=== PATIENT | male | born 1970 | race Caucasian/White ===

== ENCOUNTER 2017-01-11 19:55 | Observation (INO) ==
[2017-01-11] MEDS ORDERED: MORPHINE 2 MG/1 ML SYRINGE IV STA (20:27)
[2017-01-11] MEDS ORDERED: ONDANSETRON 4 MG/2 ML VIAL IV STA (20:27)
[2017-01-11] MEDS ORDERED: ONDANSETRON 4 MG/2 ML VIAL ONE (20:35)
[2017-01-11] MEDS ORDERED: MORPHINE 2 MG/1 ML SYRINGE ONE ×2 (20:36)
--- NOTE | 2017-01-11 20:40 | Emergency Department Note ---
IRaeann Mantricia, am scribing for, and in the presence of, Yoana Vega DO 20:35. IGary Debra, DO, personally performed the services described in this documentation, ascribed by Fifi Cary in my presence, and it is both accurate and complete . Arrival - Arrival Chief Complaint: Chest Pain ED Nursing Triage Note: pt brought in via ems with c/o s/p code per family. family reports pt had c/o chest pain then was found unresponive. family reports doing "cpr", chest compressions without rescue breathing, for an unknown length of time. ems states that pt had pulse 130's and bp of 165/100, o2 sat 97 % on RA at arrival. pt awake, alert at time of triage. pt has hx of dm. ems reports glucose of 300 Mode of Arrival: Stretcher Limitations: No Limitations Source: Patient, Family - History of Present Illness HPI Narrative: Pt is a 46 y/o white male arriving to ED via EMS with c/o unresponsiveness that onset today. Family reports that pt was experiencing chest pain around 1730 today. After eating dinner, pt began to breathe heavily and then became unresponsive. Niece reports that she began to perform chest compressions. Pt states that "feels like " and only remembers waking up here in ED. He now c /o a severe headache and elevated heart rate. Pt has a PMHx of DM and ME in January 2006. He denies consuming any recreational drugs but reports that he used cocaine in the past. EMS states that pt had a pulse of 130, glucose of 300 , and blood pressure of 165/100. Pt is a awake and alert at time of exam. At time of exam, pt's heart rate is 122 with a blood pressure of 126/59. No other complaints were reported to ED. Onset (ago): hour(s) Consistency: constant Severity: moderate Allergies/Adverse Reactions: Allergies Allergy/AdvReac Type Severity Reaction Status Date / Time Sulfa (Sulfonamide Allergy RASH Verified 09/10/14 17:57 Antibiotics) naproxen [From Naprosyn] AdvReac Swelling Verified 09/10/14 17:57 of Lip/Tongue/Throat Home Medications: Home Medications Medication Instructions Recorded Confirmed Type Insulin Aspart [NovoLOG] 30 unit SUBCUT BEDTIME 01/11/17 01/11/17 History Review of System - Review of System Constitutional: Present: other (unresponsiveness). Absent: chills, diaphoresis , fever Gastrointestinal: Absent: abdominal pain, nausea, vomiting, diarrhea Musculoskeletal: Absent: arm pain, back pain, leg pain, neck pain Neurological: Present: headache. Absent: weakness Medical,Surgical,& Family Hx - Medical History Endocrine: History of: Diabetes Mellitus (IDDM) - Social History Smoking Status: Current every day smoker Frequency of Alcohol Use: Occasionally Type of Drug Use: None Exam Vital Signs: Vital Signs Temperature 99.5 F 01/11/17 19:55 Pulse Rate 120 H 01/11/17 19:55 Respiratory Rate 20 01/11/17 19:55 Blood Pressure 123/89 01/11/17 19:55 O2 Sat by Pulse Oximetry 97 01/11/17 19:55 - General General appearance: alert, in no apparent distress, lethargic ("acting") - Head Head exam: Present: atraumatic, normocephalic - Eye Eye exam: Present: normal appearance, PERRL, EOMI - ENT ENT exam: Present: normal exam - Neck Neck exam: Present: normal inspection - Chest Chest inspection: Present: normal inspection - Respiratory Respiratory exam: Present: normal lung sounds bilaterally - Cardiovascular Cardiovascular exam: Present: normal rhythm, tachycardia, normal heart sounds - Abdominal Exam Abdominal exam: Present: soft. Absent: distention, tenderness, guarding, rebound - Extremities Exam Extremities exam: Present: full ROM, normal capillary refill, other (bilat LE mildly edemenous ). Absent: tenderness - Back Exam Back exam: Present: normal inspection - Neurological Exam Neurological exam: Present: alert, oriented X3, CN II-XII intact - Psychiatric Psychiatric exam: Present: normal affect, normal mood - Skin Skin exam: Present: warm, dry, intact, normal color Course Course Narrative: spoke with hospitalist service who will admit pt Results - Labs CBC & BMP: 01/11/17 20:51 01/11/17 20:37 Lab Results: I have reviewed the patients labs - Diagnostic Findings Procedure: CT: report reviewed by me (Head: No acute intracranial abnormality.) Disposition Clinical Impression: URI (upper respiratory infection), Atypical chest pain Case discussed with: patient, patient's family Disposition: Still a Patient Condition: Stable Prescriptions: Acetamin/Codeine 120-12 mg/5Ml [Tylenol/Codeine Liquid] 12.5 ml PO Q6H PRN #120 ml PRN Reason: Pain Ciprofloxacin Tab [Cipro Tab] 500 mg PO BID #14 tablet New Prescriptions: Rx's Medication Instructions Recorded Acetamin/Codeine 120-12 mg/5Ml 12.5 ml PO Q6H PRN #120 ml 01/11/17 [Tylenol/Codeine Liquid] Ciprofloxacin Tab [Cipro Tab] 500 mg PO BID #14 tablet 01/11/17 Time of Disposition: 23:03
[2017-01-11 20:54] LABS: Basophils # 0.1 10*3/uL (0.0-0.2); Basophils % 0.5 % (0.0-0.8); Eosinophils # 0.1 10*3/uL (0.0-0.87); Eosinophils % 0.7 % (0.00-10.9); Hematocrit 45.9 VOL% (42.0-52.0); Immature Granulocytes % 0.4 %; Immature Granulocytes Absolute 0.04 #; Lymphocytes # 1.5 10*3/uL (1.4-4.0); Lymphocytes % 15.2 % (21.2-54.2); Mean Corpuscular HGB Conc 34.9 GM/DL (32-36); Mean Corpuscular Hemoglobin 31 PG (27-34); Mean Platelet Volume 9.3 FL (9.6-12.0); Monocytes # 0.5 10*3/uL (0.11-0.8); Monocytes % 4.7 % (1.7-12.7); Neutrophils # 7.7 10*3/uL (1.4-7.4); Neutrophils % 78.5 % (38.7-73.9); Platelet Count 232 T/CUMM (130-400); Red Cell Distribution Width 12.1 % (9.3-17.3); White Blood Count 9.8 T/CUMM (4-12)
[2017-01-11 21:14] LABS: PT Patient Result 10.7 SECS; Partial Thromboplastin Time 28.3 SECS (0-40)
--- NOTE | 2017-01-11 21:14 | CT Report ---
CT head/brain wo con INDICATION: Altered mental status/confusion Headache The total DLP is 1012 mGy*cm. COMPARISON: None available Technique: Serial axial tomographic images of the brain were obtained without the use of intravenous contrast. Dose reduction: This CT exam was performed using one or more of the following dose reduction techniques: Automated exposure control, automated adjustment of the mA and/or KV according to patient size, or use of iterative reconstruction technique. Findings: The cortical sulcal pattern is generally symmetric and within normal limits in appearance bilaterally. There is no evidence of vascular territory infarct or acute intracranial hemorrhage. The vale-white matter differentiation is generally maintained. There is no hydrocephalus. The basilar cisterns are patent. The visualized paranasal sinuses, mastoid air cells and middle ear cavities are predominantly clear. The included orbits and their contents appear within normal limits. The visualized osseous structures and overlying soft tissues of the skull and face demonstrate no acute abnormality. IMPRESSION: No acute intracranial abnormality. PROCEDURE INTERPRETED AT [facility] DEPARTMENT OF RADIOLOGY Final Report Signed by: Nathan Kat
[2017-01-11 21:18] LABS: Alanine Aminotransferase 40 U/L (16-61); Albumin 2.9 G/DL (3.4-5.0); Alkaline Phosphatase 105 U/L (45-117); Aspartate Amino Transferase 33 U/L (0-37); Blood Urea Nitrogen 15 MG/DL (7-18); Calcium 8.5 MG/DL (8.5-10.1); Glucose 303 MG/DL (74-106); Potassium 4.3 MMOL/L (3.5-5.1); Sodium 136 MMOL/L (136-145); Total Protein 6.9 G/DL (6.4-8.3); Troponin I Only < 0.015 NG/ML (0.00-0.045)
[2017-01-11 21:27] LABS: Apearance,Urine CLEAR (Clear); Bilirubin,Urine Negative (Negative); Blood, Urine Negative (Negative); Glucose,Urine (UA) >=500 mg/dL (Negative); Ketones,Urine 5 mg/dL (Negative); Mucus,Urine Occasional /LPF (Occasional); Nitrite,Urine Negative (Negative); Protein,Urine 30 MG/DL; RBC,Urine <1 /HPF (0-4); Urine Color Yellow (Yellow); Urine Urobilinogen < 2.0 EU/DL (0.2-1.0); WBC,Urine <1 /HPF (0-6)
[2017-01-11 21:31] LABS: Barbiturates Screen,Urine Negative (Negative); Benzodiazepines Screen,Urine Negative (Negative); Cannabinoid Screen,Urine Negative (Negative); Opiate Screen,Urine Negative (Negative); Phencyclidine Screen,Urine Negative (Negative)
[2017-01-11] MEDS ORDERED: INSULIN REGULAR 100 UNIT/ML IV STA (21:52)
[2017-01-11] MEDS ORDERED: INSULIN REGULAR 100 UNIT/ML ONE (22:07)
[2017-01-11] MEDS ORDERED: SODIUM CHLORIDE 0.9% 1,000 ML IV STA (22:20)
[2017-01-11] MEDS ORDERED: LEVOFLOXACIN INJ 750 MG in PREMIX 1 EACH IV STA (23:06)
--- NOTE | 2017-01-11 23:35 | EKG Report ---
Stationary ECG Study [facility] ER Test Date: 01/11/2017 8:16:52 PM Pat Name: BHARTI JAMES Department: Room: Gender: M Housing Coordinator: : 1970 Requested by: Yoana Vega Order Number: [id number] Reading MD: MELITA KASPER Intervals [place] Rate: 121 P: 71 SD: 142 QRS: 77 QRSD: 92 T: 69 QT: 287 QTc: 359 Interpretive Statements SINUS TACHYCARDIA ABNORMAL RHYTHM ECG Electronically Signed On 01-12-17 18:49:51 CDT by MELITA KASPER [email or web address]
[2017-01-11] MEDS ORDERED: LEVOFLOXACIN INJ 150 ML IV ONE (23:43)
[2017-01-12] MEDS ORDERED: ASPIRIN 325 MG TABLET PO STA (00:28)
[2017-01-12] MEDS ORDERED: NITROGLYCERIN SL 0.4 MG TABLET SL PRN (00:28)
[2017-01-12] MEDS ORDERED: DEXTROSE 50% 25 GM/50 ML SYRINGE IV PRN (00:41)
[2017-01-12] MEDS ORDERED: GLUCAGON 1 MG VIAL IM PRN (00:41)
--- NOTE | 2017-01-12 00:47 | Hospitalist History & Physical ---
Assessment and Plan (1) Chest pain Status: Acute Assessment and plan: Associated with syncope in a patient with a history of prior WA that he said was treated at [facility]. He had what family describes complete syncope for which they applied CPR following the chest pain. Certainly cardiac arrest is a possibility based on his this history. We will continue workup for acute coronary syndrome rule out. Start aspirin, beta murphy, Lovenox, Plavix. Consult cardiology. He was given a dose of Levaquin in the ER but I do not see a strong reason to continue antibiotics at this point. Current Visit: Yes (2) Syncope Status: Acute Current Visit: Yes (3) History of WA (myocardial infarction) Status: Acute Assessment and plan: We will request records of prior WA from [facility]. Current Visit: Yes (4) Uncontrolled diabetes mellitus type 2 without complications Status: Acute Assessment and plan: Patient says he takes 30 units of Humalog daily. I explained to him that this is actually an unconventional method of treatment. Proper treatment would include basal insulin and use of quick-acting Humalog type only for carbohydrate meal coverage and sliding scale insulin spike coverage. His sugars 300. Will start medium sliding scale and basal insulin with NPH 15 units twice a day until we see what his basal insulin requirements are. Check A1c. 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 Herrmann is a 46 year old male States he had an WA in 2005. He says he has not followed up with cardiology or even very often with primary care since then. He states that on the evening of admission at about 5 PM he had an episode of chest pain which lasted about 5 minutes. Then he passed out apparently witnessed by family members then performed CPR on him. After this he came around quickly. He complained of now soreness in his chest he feels from the CPR and a headache. He denied diaphoresis nausea or dyspnea. He denies exertional chest pains. He has diabetes and his only medication is Humalog 30 units daily in the evening. He apparently does not take any basal insulin. Vital signs in ER showed BP 123/89 , pulse 120, temperature 99.5. 2127. Lab work showed normal CBC and chemistry except for glucose of 303. Chest x-ray appears negative reading is pending. EKG showed sinus tachycardia. Troponin I was negative at less than 0.015. And again at this point he feels okay except for headache. Home Medications Medication Instructions Recorded Confirmed Type Insulin Aspart [NovoLOG] 30 unit SUBCUT BEDTIME 01/11/17 01/11/17 History Allergies Allergy/AdvReac Type Severity Reaction Status Date / Time Sulfa (Sulfonamide Allergy RASH Verified 09/10/14 17:57 Antibiotics) naproxen [From Naprosyn] AdvReac Swelling Verified 09/10/14 17:57 of Lip/Tongue/Throat Medical,Surgical,& Family Hx - Medical History Cardio: History of: WA (2005) Endocrine: History of: Diabetes Mellitus (IDDM) (States he had eye surgery.) - Family History Family History: noncontributory (Family history reviewed and otherwise nonsignificant. Denies other family members with heart disease.) - Social History Smoking Status: Current every day smoker Frequency of Alcohol Use: Occasionally (Admits to drinking 2-4 beers 2-3 times per week. "Just to relax.") Type of Drug Use: None 12 point system: reviewed and no additional remarkable complaints except as stated Exam - Constitutional Vitals: Period Temp Pulse Resp BP Sys/Hu Pulse Ox Last 24 Hr 99.5 F-99.5 F 120-120 20-20 123-123/89-89 97 General appearance: normal weight, over weight - Head Head exam: Present: normal inspection - Eye Eye exam: Present: EOMI Pupils: Present: SAUD, normal accommodation - ENT ENT exam: Present: normal exam, normal external ear exam, normal oropharynx - Neck Neck exam: Present: normal inspection. Absent: lymphadenopathy, tenderness, thyromegaly - Respiratory Respiratory exam: Present: clear to auscultation bilaterally. Absent: rales, rhonchi, wheezes - Cardiovascular Cardiovascular exam: Present: regular rate and rhythm. Absent: JVD, systolic murmur - GI/Abdominal GI/Abdominal exam: Present: normal bowel sounds, soft. Absent: tenderness, rebound - Extremities Exam Extremities exam: Present: normal inspection. Absent: edema - Back Exam Back exam: Present: normal inspection - Neurological Exam Neurological exam: Present: alert, oriented X3, normal gait - Psychiatric Psychiatric exam: Present: normal affect, normal mood - Skin Skin exam: Present: normal color, warm. Absent: diaphoretic, rash Results - Labs CBC & BMP: 01/11/17 20:51 01/11/17 20:37 - EKG EKG results: WNL, sinus rhythm - Diagnostic Findings Procedure: Chest x-ray: image reviewed by me (appears normal)
[2017-01-12] MEDS ORDERED: ASPIRIN 325 MG TABLET ONE (00:56)
[2017-01-12] MEDS ORDERED: CLOPIDOGREL 300 MG TABLET PO STA (01:02)
[2017-01-12 01:47] LABS: Albumin 2.9 G/DL (3.4-5.0); Bilirubin,Total 0.5 MG/DL (0.2-1.0); Calcium 7.9 MG/DL (8.5-10.1); Osmolality,Calculated 276.2 MOS/KG (273-304); Potassium 4.2 MMOL/L (3.5-5.1); Total Protein 6.9 G/DL (6.4-8.3)
[2017-01-12] MEDS: ENOXAPARIN 100 MG/ML SYRINGE SUBCUT SCH ×2 (02:49→15:30)
[2017-01-12 04:46] LABS: Basophils % 0.6 % (0.0-0.8); Eosinophils % 0.3 % (0.00-10.9); Hematocrit 41.4 VOL% (42.0-52.0); Hemoglobin 14.6 GM/DL (14.0-18.0); Immature Granulocytes % 0.4 %; Immature Granulocytes Absolute 0.03 #; Lymphocytes # 1.4 10*3/uL (1.4-4.0); Lymphocytes % 21.4 % (21.2-54.2); Mean Corpuscular HGB Conc 35.3 GM/DL (32-36); Mean Corpuscular Hemoglobin 32 PG (27-34); Mean Corpuscular Volume 89.8 FL (87-102); Mean Platelet Volume 9.5 FL (9.6-12.0); Monocytes # 0.4 10*3/uL (0.11-0.8); Monocytes % 5.9 % (1.7-12.7); Neutrophils # 4.8 10*3/uL (1.4-7.4); Neutrophils % 71.4 % (38.7-73.9); Platelet Count 202 T/CUMM (130-400); Red Blood Count 4.61 MC/CUMM (3.8-5.5); Red Cell Distribution Width 12.1 % (9.3-17.3); White Blood Count 6.7 T/CUMM (4-12)
[2017-01-12 05:13] LABS: Albumin 2.7 G/DL (3.4-5.0); Bilirubin,Total 0.9 MG/DL (0.2-1.0); Calcium 7.7 MG/DL (8.5-10.1); Osmolality,Calculated 284.2 MOS/KG (273-304); Potassium 4.3 MMOL/L (3.5-5.1); Total Protein 5.8 G/DL (6.4-8.3)
--- NOTE | 2017-01-12 07:39 | EKG Report ---
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
--- NOTE | 2017-01-12 07:43 | XRay Report ---
Exam: XR chest 1V portable Date: 01/11/2017 10:40 PM Indication: Cough chest pain Comparison: None Technical: AP Findings: External cardiac leads are present. The heart is normal in size. No obvious consolidations. Mild interstitial thickening. No obvious effusions. No pneumothorax. Impression: 1. Mild interstitial thickening without consolidations. This could be secondary to mid inspiratory effort however mild interstitial edema cannot be excluded PROCEDURE INTERPRETED AT [facility] DEPARTMENT OF RADIOLOGY Final Report Signed by: Dr. Gunnar Allen
[2017-01-12] MEDS ORDERED: INSULIN NPH 100 UNIT/ML SUBCUT SCH (08:00)
[2017-01-12] MEDS: INSULIN LISPRO 100 UNIT/ML SUBCUT SCH ×4 (09:03→21:08)
[2017-01-12] MEDS: ASPIRIN CHEW 81 MG TABLET PO SCH (09:03)
[2017-01-12] MEDS: METOPROLOL TARTRATE 25 MG TABLET PO SCH ×2 (09:03→21:07)
--- NOTE | 2017-01-12 11:21 | Hospitalist Progress Note ---
Assessment and Plan (1) Fever Status: Acute Assessment and plan: On admission he had a temperature of 102.4. Chest x-ray and urinalysis were unremarkable. He was begun on intravenous levofloxacin.Blood cultures were obtained and are pending. Current Visit: Yes Qualifiers: Fever type: unspecified Qualified Code(s): R50.9 - Fever, unspecified (2) Syncope Status: Acute Assessment and plan: Telemetry monitoring is demonstrated sinus tachycardia. CT scan of the head demonstrated no acute abnormalities. He has been seen in consultation by cardiology. Current Visit: Yes (3) Uncontrolled diabetes mellitus type 2 without complications Status: Chronic Assessment and plan: His blood glucose this morning was 418. I have increased his NPH insulin to 20 units subcutaneous twice daily. Current Visit: Yes Qualifiers: Diabetes mellitus half-way insulin use: with intensivist use Qualified Code( s): E11.65 - Type 2 diabetes mellitus with hyperglycemia; Z79.4 - jowl trimmer ( current) use of insulin (4) CAD (coronary artery disease) Status: Chronic Assessment and plan: He has a previous history of a myocardial infarction and of a possible coronary intervention. Current Visit: Yes Qualifiers: Coronary Disease-Associated Artery/Lesion type: [place] artery [place] vs. transplanted heart: [place] heart Associated angina: without angina Qualified Code(s): I25.10 - Atherosclerotic heart disease of [place] coronary artery without angina pectoris Hospitalist: Subjective Interval history: Patient was hospitalized here last night with an episode of syncope and with uncontrolled diabetes mellitus. He is comfortable today with no chest pain, shortness of breath, dizziness, or recurrent episodes of loss of consciousness. He was begun on insulin NPH 15 units subcutaneous twice daily on admission.His blood glucose this morning was 418. I will increase his NPH insulin to 20 units subcutaneous twice daily. He has been seen in consultation by cardiology. I await the recommendations. Exam - Constitutional Vitals: Period Temp Pulse Resp BP Sys/Hu Pulse Ox Last 24 Hr 99.5 F-102.4 F 101-125 20-28 104-127/56-89 96-97 General appearance: no acute distress - Head Head exam: Present: normal inspection - Neck Neck exam: Present: normal inspection - Respiratory Respiratory exam: Present: clear to auscultation bilaterally - Cardiovascular Cardiovascular exam: Present: regular rate and rhythm - GI/Abdominal GI/Abdominal exam: Present: normal bowel sounds, soft, other (Nontender with no palpable masses or hepatosplenomegaly.) - Extremities Exam Extremities exam: Present: normal inspection - Neurological Exam Neurological exam: Present: alert, oriented X3 - Skin Skin exam: Present: normal color, warm, intact Results - Labs CBC & BMP: 01/12/17 04:32 01/12/17 04:31
[2017-01-12] MEDS: ACETAMINOPHEN 325 MG TABLET PO PRN (15:46)
[2017-01-12] MEDS: INSULIN NPH 100 UNIT/ML SUBCUT SCH (16:37)
--- NOTE | 2017-01-12 20:05 | Cardiology Consult Note ---
I, Joie Escamilla RN, am scribing for, and in the presence of, Emre Johns MD 20:04. Assessment and Plan - Time spent with patient Time spent with patient: Greater than 30 minutes (Due to assessment, planning, documentation, medication review) (1) Syncope Status: Acute Assessment and plan: Initial assessment and plan January 12, 2017: His story sounds unusual. I am not so sure that he had a true syncopal episode and CPR for 45 minutes-?. These enzymes negative, I doubt he is having ACS He has unknown treated/uncontrolled diabetes He is overweight I suspect he has untreated obstructive sleep apnea, likely contributing to his EDS Heart pounding could be tachycardia for many causes. So far it is only been sinus tachycardia The metoprolol is not controlling the tachycardia DC metoprolol and use bisoprolol I discussed with the patient the benefits of stopping tobacco/nicotine, the problems with continuing to use it, and options of treatment. The patient is considering this option. Consult Dr. Benitez regarding evaluations treatment of sleep apnea Aspirin daily Check fasting profile and treat per guidelines Prognosis is very guarded with so many untreated medical illnesses Thank you for allowing me to participate in this patient's care Current Visit: Yes (2) Tachycardia Status: Acute Current Visit: Yes (3) Palpitations Status: Acute Current Visit: Yes (4) History of ND (myocardial infarction) Status: Chronic Current Visit: No (5) Uncontrolled diabetes mellitus type 2 without complications Status: Chronic Current Visit: Yes Qualifiers: Diabetes mellitus [facility] insulin use: with manager long term care use Qualified Code( s): E11.65 - Type 2 diabetes mellitus with hyperglycemia; Z79.4 - manager long term care ( current) use of insulin (6) CAD (coronary artery disease) Status: Chronic Current Visit: Yes Qualifiers: Coronary Disease-Associated Artery/Lesion type: [place] artery [place] vs. 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 Johns PCP: None, states he just moved to this area recently Mr. Herrmann is a 46 year old male who reports he last saw a director technical about 4 years ago. He saw a director technical in [place], he does not remember the name. He reports he had an ND about 20 years ago. He had a heart cath at that time and they "cleaned out the blockage". He states he had a stress test done about 8 years ago and was told it was okay. He also has diabetes. 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 Surgeries include 2 eye surgeries, surgery for diabetic cyst, and tonsillectomy. Family history is positive for mother and sister with diabetes. He is a current smoker, stating he smokes 1 pack a day and has smoked since he was 10 years old. He states he was in his normal state of health until yesterday afternoon he was driving home and his heart began to beat very fast and he became short of breath. This continued and while he was eating he passed out and does not remember anything until he woke up at the hospital. No family is available at this time, but he says they told him that "his breathing was not right and his chest was beating hard", he also says they performed CPR. He says when he woke up at the hospital he continued to be short of breath and his heart was still beating fast, but the symptoms had improved. For the last several days he has had lower extremity edema. He says he has this from time to time. He denies having any chest pain at any time. EKG on admission showed sinus tachycardia with heart rate of 121. His blood pressures have been stable throughout the night. D-dimer was negative. Troponin has been negative 3. CT of the head showed no acute intracranial abnormality. Mr. Herrmann is seen resting in bed in no acute distress. She denies any chest pain, shortness of breath, dizziness, palpitations, or any further feelings of syncope or near syncope. His only complaint this morning is of a headache. He does have a temp this morning at 102.4, his white count has been normal. He has been started on metoprolol tartrate 25 mg p.o. twice daily. director college currently shows sinus tachycardia with heart rates in the 110s. CC: Chuck Spangler - Home Medications and Allergies Home Medications: Home Medications Medication Instructions Recorded Confirmed Type Insulin Aspart [NovoLOG] 30 unit SUBCUT BEDTIME 01/11/17 01/11/17 History Allergies/Adverse Reactions: Allergies Allergy/AdvReac Type Severity Reaction Status Date / Time Sulfa (Sulfonamide Allergy RASH Verified 09/10/14 17:57 Antibiotics) naproxen [From Naprosyn] AdvReac Swelling Verified 09/10/14 17:57 of Lip/Tongue/Throat - Constitutional Constitutional: Present: as per HPI - EENT Eyes: Present: loss of vision, requires corrective lense Ears: Absent: ear pain, tinnitus Nose, mouth and throat: Present: headache(s). Absent: dysphagia, epistaxis, neck pain - Cardiovascular Cardiovascular: Present: dyspnea, dyspnea on exertion, edema, palpitations. Absent: chest pain at rest, chest pain with activity, diaphoresis, radiating jaw , neck or arm pain, lightheadedness, orthopnea - Respiratory Respiratory: Present: cough, dyspnea, dyspnea on exertion. Absent: hemoptysis, wheezing - Gastrointestinal Gastrointestinal: Absent: abdominal pain, constipation, diarrhea, hematemesis, hematochezia, melena, nausea, vomiting - Genitourinary Genitourinary: Absent: dysuria, hematuria - Musculoskeletal Musculoskeletal: Absent: limited range of motion, muscle weakness - Neurological Neurological: Present: headache(s), syncope. Absent: confusion, dizziness, frequent falls - Psychiatric Psychiatric: Absent: anxiety, depression - Hematologic/Lymphatic Hematologic/Lymphatic: Absent: easy bleeding, easy bruising Medical,Surgical,& Family Hx - Medical History Cardio: History of: ND (2005) HEENT: History of: Eye Problem Endocrine: History of: Diabetes Mellitus (IDDM) (States he had eye surgery.) Other: History of: Miscellaneous Medical Problems (Head trauma as a child) - Surgical History Cardiac Surgeries: Sugical HX of: Cardiac Catheterization (2005) HEENT Surgeries: Surgical HX of: Eye Surgery, Tonsilectomy & Adenoidectomy - Family History Family History: Reports;: Family Diabetes (Mother, sister) - Social History Smoking Status: Current every day smoker (Smokes a pack a day, has smoked since age of 10) Have you smoked in the last 12 months: Yes Time spent discussing smoking cessation with patient: 3 to 10 minutes Frequency of Alcohol Use: Occasionally Type of Drug Use: None Lives With:: Sibling Functional capacity: independent ambulation Physical Examination Vital Signs Temp Pulse Resp BP Pulse Ox 99.5 F 120 H 20 123/89 97 01/11/17 19:55 01/11/17 19:55 01/11/17 19:55 01/11/17 19:55 01/11/17 19:55 General: Present: Appears Well, No Apparent Distress HEENT: Present: PERRL, Mucus Membranes Moist, Other (Right sided facial paralysis) Neck: Present: Supple Neck, Midline Trachea, No Bruit Cardiac: Present: Regular Rhythm, No Murmur, Tachycardia Lungs: Present: Normal Breath Sounds, No Wheeze, Rales, Rhonchi Neuro: Absent: Resting Tremor, Essential Tremor Abdomen: Present: Soft, Active Bowel Sounds, Non-Tender. Absent: Distended Skin: Absent: Rash, Suspicious Lesions Extremities: Present: Normal Upper Extr. Pulses, Normal Lower Extr. Pulses, +1 Edema Result/EKG - Labs CBC & BMP: 01/12/17 04:32 01/12/17 04:31 Lab Results: I have reviewed the past 24 hour labs Labs: Laboratory Results - last 24 hr 01/11/17 01/11/17 01/11/17 20:37 20:51 20:51 WBC 9.8 RBC 5.10 Hgb 16.0 Hct 45.9 MCV 90.0 MCH 31 MCHC 34.9 RDW 12.1 Plt Count 232 MPV 9.3 L Neut % (Auto) 78.5 H Lymph % (Auto) 15.2 L Elliott % (Auto) 4.7 Eos % (Auto) 0.7 Baso % (Auto) 0.5 Neut # (Auto) 7.7 H Lymph # (Auto) 1.5 Elliott # (Auto) 0.5 Eos # (Auto) 0.1 Baso # (Auto) 0.1 Immature Gran % 0.4 Nucleated RBC % 0.0 Immature Gran # 0.04 Nucleated RBCs # 0.00 Immature Plt Fraction 0.0 INR 1.0 PT Patient/Control Mix 10.7 D-Dimer, Quantitative <= 0.5 Circ Anticoag PTT 28.3 Sodium 136 Potassium 4.3 Chloride 103 Carbon Dioxide 26 Anion Gap 11.3 BUN 15 Creatinine 0.90 GFR Calculation 133 BUN/Creatinine Ratio 16.00 Glucose 303 H POC Glucose Hemoglobin A1c Calculated Osmolality 283.0 Lactic Acid Calcium 8.5 Total Bilirubin 0.50 AST 33 ALT 40 Alkaline Phosphatase 105 Total Creatine Kinase 74 CK-MB (CK-2) < 1.0 Troponin I < 0.015 B-Natriuretic Peptide Total Protein 6.9 Albumin 2.9 L Globulin 4.0 H Albumin/Globulin Ratio 0.7 L b-Hydroxybutyric mmol/L Urine Color Urine Appearance Urine pH Ur Specific [place] Urine Protein Urine Glucose (UA) Urine Ketones Urine Blood Urine Nitrate Urine Bilirubin Urine Urobilinogen Urine Leukocytes Urine RBC Urine WBC Urine Mucus Ur Culture Indicated? Urine Opiates Screen Ur Barbiturates Screen Ur Phencyclidine Scrn U Amphetamine/Methamph U Benzodiazepines Scrn U Cocaine Metab Screen U Cannabinoids Screen 01/11/17 01/11/17 01/11/17 20:51 21:18 21:18 WBC RBC Hgb Hct MCV MCH MCHC RDW Plt Count MPV Neut % (Auto) Lymph % (Auto) Elliott % (Auto) Eos % (Auto) Baso % (Auto) Neut # (Auto) Lymph # (Auto) Elliott # (Auto) Eos # (Auto) Baso # (Auto) Immature Gran % Nucleated RBC % Immature Gran # Nucleated RBCs # Immature Plt Fraction INR PT Patient/Control Mix D-Dimer, Quantitative Circ Anticoag PTT Sodium Potassium Chloride Carbon Dioxide Anion Gap BUN Creatinine GFR Calculation BUN/Creatinine Ratio Glucose POC Glucose Hemoglobin A1c Calculated Osmolality Lactic Acid Calcium Total Bilirubin AST ALT Alkaline Phosphatase Total Creatine Kinase CK-MB (CK-2) Troponin I B-Natriuretic Peptide 14 Total Protein Albumin Globulin Albumin/Globulin Ratio b-Hydroxybutyric mmol/L Urine Color Yellow Urine Appearance Clear Urine pH 6.0 Ur Specific [place] 1.010 Urine Protein 30 Urine Glucose (UA) >=500 Urine Ketones 5 Urine Blood Negative Urine Nitrate Negative Urine Bilirubin Negative Urine Urobilinogen < 2.0 H Urine Leukocytes Negative Urine RBC <1 Urine WBC <1 Urine Mucus Occasional Ur Culture Indicated? Not indicated Urine Opiates Screen Negative Ur Barbiturates Screen Negative Ur Phencyclidine Scrn Negative U Amphetamine/Methamph Negative U Benzodiazepines Scrn Negative U Cocaine Metab Screen Negative U Cannabinoids Screen Negative 01/11/17 01/11/17 01/12/17 22:15 23:38 00:57 WBC RBC Hgb Hct MCV MCH MCHC RDW Plt Count MPV Neut % (Auto) Lymph % (Auto) Elliott % (Auto) Eos % (Auto) Baso % (Auto) Neut # (Auto) Lymph # (Auto) Elliott # (Auto) Eos # (Auto) Baso # (Auto) Immature Gran % Nucleated RBC % Immature Gran # Nucleated RBCs # Immature Plt Fraction INR PT Patient/Control Mix D-Dimer, Quantitative Circ Anticoag PTT Sodium Potassium Chloride Carbon Dioxide Anion Gap BUN Creatinine GFR Calculation BUN/Creatinine Ratio Glucose POC Glucose Hemoglobin A1c Calculated Osmolality Lactic Acid 1.1 Calcium Total Bilirubin AST ALT Alkaline Phosphatase Total Creatine Kinase CK-MB (CK-2) Troponin I < 0.015 B-Natriuretic Peptide Total Protein Albumin Globulin Albumin/Globulin Ratio b-Hydroxybutyric mmol/L 0.1 Urine Color Urine Appearance Urine pH Ur Specific [place] Urine Protein Urine Glucose (UA) Urine Ketones Urine Blood Urine Nitrate Urine Bilirubin Urine Urobilinogen Urine Leukocytes Urine RBC Urine WBC Urine Mucus Ur Culture Indicated? Urine Opiates Screen Ur Barbiturates Screen Ur Phencyclidine Scrn U Amphetamine/Methamph U Benzodiazepines Scrn U Cocaine Metab Screen U Cannabinoids Screen 01/12/17 01/12/17 01/12/17 00:57 04:31 04:31 WBC RBC Hgb Hct MCV MCH MCHC RDW Plt Count MPV Neut % (Auto) Lymph % (Auto) Elliott % (Auto) Eos % (Auto) Baso % (Auto) Neut # (Auto) Lymph # (Auto) Elliott # (Auto) Eos # (Auto) Baso # (Auto) Immature Gran % Nucleated RBC % Immature Gran # Nucleated RBCs # Immature Plt Fraction INR PT Patient/Control Mix D-Dimer, Quantitative Circ Anticoag PTT Sodium 134 L 134 L Potassium 4.2 4.3 Chloride 103 101 Carbon Dioxide 26 27 Anion Gap 9.2 10.3 BUN 12 11 Creatinine 0.80 1.00 GFR Calculation 139 122 BUN/Creatinine Ratio 15.00 11.00 Glucose 267 H 418 H POC Glucose Hemoglobin A1c Calculated Osmolality 276.2 284.2 Lactic Acid Calcium 7.9 L 7.7 L Total Bilirubin 0.50 0.90 AST 22 24 ALT 37 39 Alkaline Phosphatase 103 97 Total Creatine Kinase CK-MB (CK-2) Troponin I < 0.015 B-Natriuretic Peptide Total Protein 6.9 5.8 L Albumin 2.9 L 2.7 L Globulin 4.0 H 3.1 Albumin/Globulin Ratio 0.7 L 0.8 L b-Hydroxybutyric mmol/L Urine Color Urine Appearance Urine pH Ur Specific [place] Urine Protein Urine Glucose (UA) Urine Ketones Urine Blood Urine Nitrate Urine Bilirubin Urine Urobilinogen Urine Leukocytes Urine RBC Urine WBC Urine Mucus Ur Culture Indicated? Urine Opiates Screen Ur Barbiturates Screen Ur Phencyclidine Scrn U Amphetamine/Methamph U Benzodiazepines Scrn U Cocaine Metab Screen U Cannabinoids Screen 01/12/17 01/12/17 01/12/17 04:32 04:32 07:45 WBC 6.7 D RBC 4.61 Hgb 14.6 Hct 41.4 L MCV 89.8 MCH 32 MCHC 35.3 RDW 12.1 Plt Count 202 MPV 9.5 L Neut % (Auto) 71.4 Lymph % (Auto) 21.4 Elliott % (Auto) 5.9 Eos % (Auto) 0.3 Baso % (Auto) 0.6 Neut # (Auto) 4.8 Lymph # (Auto) 1.4 Elliott # (Auto) 0.4 Eos # (Auto) 0.0 Baso # (Auto) 0.0 Immature Gran % 0.4 Nucleated RBC % 0.0 Immature Gran # 0.03 Nucleated RBCs # 0.00 Immature Plt Fraction 0.0 INR PT Patient/Control Mix D-Dimer, Quantitative Circ Anticoag PTT Sodium Potassium Chloride Carbon Dioxide Anion Gap BUN Creatinine GFR Calculation BUN/Creatinine Ratio Glucose POC Glucose 196 H Hemoglobin A1c 11.8 H Calculated Osmolality Lactic Acid Calcium Total Bilirubin AST ALT Alkaline Phosphatase Total Creatine Kinase CK-MB (CK-2) Troponin I B-Natriuretic Peptide Total Protein Albumin Globulin Albumin/Globulin Ratio b-Hydroxybutyric mmol/L Urine Color Urine Appearance Urine pH Ur Specific [place] Urine Protein Urine Glucose (UA) Urine Ketones Urine Blood Urine Nitrate Urine Bilirubin Urine Urobilinogen Urine Leukocytes Urine RBC Urine WBC Urine Mucus Ur Culture Indicated? Urine Opiates Screen Ur Barbiturates Screen Ur Phencyclidine Scrn U Amphetamine/Methamph U Benzodiazepines Scrn U Cocaine Metab Screen U Cannabinoids Screen - Diagnostic Findings Procedure: Chest x-ray: report reviewed by me - EKG EKG results: interpreted by me EKG shows: tachycardia, sinus rhythm INat Dale, MD, personally performed the services described in this documentation, ascribed by Joie Escamilla RN in my presence, and it is both accurate and complete .
[2017-01-12] MEDS: PANTOPRAZOLE 40 MG TABLET PO SCH (21:04)
[2017-01-12] MEDS: BISOPROLOL 5 MG TABLET PO SCH (21:07)
[2017-01-13 06:31] LABS: Basophils # 0.1 10*3/uL (0.0-0.2); Basophils % 0.6 % (0.0-0.8); Eosinophils # 0.1 10*3/uL (0.0-0.87); Eosinophils % 0.7 % (0.00-10.9); Hemoglobin 14.8 GM/DL (14.0-18.0); Immature Granulocytes % 0.6 %; Immature Granulocytes Absolute 0.05 #; Lymphocytes # 2.4 10*3/uL (1.4-4.0); Lymphocytes % 27.9 % (21.2-54.2); Mean Corpuscular HGB Conc 34.4 GM/DL (32-36); Mean Corpuscular Hemoglobin 31 PG (27-34); Mean Corpuscular Volume 90.1 FL (87-102); Mean Platelet Volume 9.7 FL (9.6-12.0); Monocytes # 0.8 10*3/uL (0.11-0.8); Monocytes % 9.2 % (1.7-12.7); Neutrophils # 5.2 10*3/uL (1.4-7.4); Platelet Count 180 T/CUMM (130-400); Red Blood Count 4.77 MC/CUMM (3.8-5.5); Red Cell Distribution Width 11.9 % (9.3-17.3); White Blood Count 8.5 T/CUMM (4-12)
[2017-01-13 08:53] LABS: Calcium 8.2 MG/DL (8.5-10.1); Magnesium 1.8 MG/DL (1.8-2.4); Potassium 4.9 MMOL/L (3.5-5.1); Risk Ratio 6.64; VLDL CHOLESTEROL 37.6 MG/DL
[2017-01-13] MEDS: INSULIN NPH 100 UNIT/ML SUBCUT SCH ×2 (10:00→17:29)
[2017-01-13] MEDS: INSULIN LISPRO 100 UNIT/ML SUBCUT SCH ×4 (10:01→21:15)
[2017-01-13] MEDS: METOPROLOL TARTRATE 25 MG TABLET PO SCH (10:01)
[2017-01-13] MEDS: ASPIRIN CHEW 81 MG TABLET PO SCH (10:01)
[2017-01-13] MEDS: BISOPROLOL 5 MG TABLET PO SCH (10:02)
[2017-01-13] MEDS: PANTOPRAZOLE 40 MG TABLET PO SCH (10:02)
[2017-01-13] MEDS: ENOXAPARIN 100 MG/ML SYRINGE SUBCUT SCH ×2 (10:07→21:15)
--- NOTE | 2017-01-13 10:20 | Hospitalist Progress Note ---
Assessment and Plan (1) CAD (coronary artery disease) Status: Chronic Assessment and plan: He has a previous history of a myocardial infarction and of a possible coronary intervention. He has not been experiencing chest pain. There is no evidence of a myocardial infarction. Current Visit: Yes Qualifiers: Coronary Disease-Associated Artery/Lesion type: [place] artery [place] vs. transplanted heart: [place] heart Associated angina: without angina Qualified Code(s): I25.10 - Atherosclerotic heart disease of [place] coronary artery without angina pectoris (2) Fever Status: Acute Assessment and plan: On admission he had a temperature of 102.4. Chest x-ray and urinalysis were unremarkable. He was begun on intravenous levofloxacin. Blood cultures are negative. I will discontinue the antibiotics. Current Visit: Yes Qualifiers: Fever type: unspecified Qualified Code(s): R50.9 - Fever, unspecified (3) Syncope Status: Acute Assessment and plan: Telemetry monitoring has demonstrated sinus rhythm. CT scan of the head demonstrated no acute abnormalities. He is being followed by cardiology. Current Visit: Yes (4) Uncontrolled diabetes mellitus type 2 without complications Status: Chronic Assessment and plan: His blood glucose this morning was 273. I will increase his and NPH insulin to 25 units subcutaneous twice daily. Current Visit: Yes Qualifiers: Diabetes mellitus skilled nursing insulin use: with terminal gauger use Qualified Code( s): E11.65 - Type 2 diabetes mellitus with hyperglycemia; Z79.4 - [facility]iary ( current) use of insulin Hospitalist: Subjective Interval history: Patient is doing well today with no complaints. He denies shortness of breath, chest pain, or palpitations. He is being followed by cardiology. He underwent an echocardiogram the results of which are not yet available. He is eager to go home as soon as cardiology clears him to do so. Exam - Constitutional Vitals: Period Temp Pulse Resp BP Sys/Hu Pulse Ox Last 24 Hr 97.5 F-99.8 F 88-110 18-28 108-131/61-72 94-98 General appearance: no acute distress - Head Head exam: Present: normal inspection - Neck Neck exam: Present: normal inspection - Respiratory Respiratory exam: Present: clear to auscultation bilaterally - Cardiovascular Cardiovascular exam: Present: regular rate and rhythm - GI/Abdominal GI/Abdominal exam: Present: normal bowel sounds, soft, other (Nontender with no palpable masses or hepatosplenomegaly.) - Extremities Exam Extremities exam: Present: normal inspection - Skin Skin exam: Present: normal color, warm, intact Results - Labs CBC & BMP: 01/13/17 06:11 01/13/17 06:11
--- NOTE | 2017-01-13 12:42 | Sleep Medicine Consult ---
Assessment and Plan (1) Suspected sleep apnea Status: Acute Assessment and plan: I concur with the suspicion for sleep apnea based on his history of snoring, physical features, and comorbidities of diabetes and heart disease. We will schedule him for outpatient polysomnography. Thank you for this consult and the opportunity to participate in his care. Current Visit: Yes (2) Uncontrolled diabetes mellitus type 2 without complications Status: Chronic Assessment and plan: The prevalence rate for obstructive sleep apnea in patients with type 2 diabetes can be as high as 86%. Those patients with moderate to severe obstructive sleep apnea are at a greater risk for diabetic nephropathy and neuropathy. Compliance with CPAP therapy for these patients can lead to improvement in glycemic control and improvement in insulin sensitivity. Current Visit: Yes Qualifiers: Diabetes mellitus terminal system operator insulin use: with nursing home use Qualified Code( s): E11.65 - Type 2 diabetes mellitus with hyperglycemia; Z79.4 - [facility] ( current) use of insulin (3) CAD (coronary artery disease) Status: Chronic Assessment and plan: I reviewed the Zambrano data from Lancet 2004 with the patient to their understanding. This study proved significant reduction in the risk of fatal and nonfatal cardiac events in patients with severe obstructive sleep apnea compliant with CPAP, in comparison with those noncompliant with CPAP for severe sleep apnea. Current Visit: Yes Qualifiers: Coronary Disease-Associated Artery/Lesion type: [place] artery [place] vs. transplanted heart: [place] heart Associated angina: without angina Qualified Code(s): I25.10 - Atherosclerotic heart disease of [place] coronary artery without angina pectoris History of Present Illness Chief complaint: Sleep apnea History of present illness: Mr. Herrmann is a 46 year old male admitted with a syncopal episode and questionable cardiac arrest. He has been admitted and evaluated from a cardiac standpoint. He has had negative cardiac isoenzymes and unremarkable EKGs for ischemic abnormalities. He has had some sinus tachycardia. There was concern for sleep apnea as a contributing factor or associated problem. He does snore but is never been told that he stops breathing during his sleep. He is unaware of awakening from sleep short of breath. He usually retires between 830 and 10 PM and awakens at 5 AM. He will awaken 2-3 times a night to urinate. He denies any significant problems with daytime fatigue or sleepiness. He does not have any symptoms of restless legs or leg jerks. He does have significant past medical history of type 2 diabetes and coronary artery disease with previous myocardial infarction several years ago. Home Medications Medication Instructions Recorded Confirmed Type Insulin Aspart [NovoLOG] 30 unit SUBCUT BEDTIME 01/11/17 01/11/17 History Allergies Allergy/AdvReac Type Severity Reaction Status Date / Time Sulfa (Sulfonamide Allergy RASH Verified 09/10/14 17:57 Antibiotics) naproxen [From Naprosyn] AdvReac Swelling Verified 09/10/14 17:57 of Lip/Tongue/Throat Review of systems: Otherwise unremarkable from sleep standpoint. Exam ([place]) H&P - Constitutional Vitals: Period Temp Pulse Resp BP Sys/Hu Pulse Ox Last 24 Hr 97.5 F-98.5 F 81-110 18-28 93-131/59-72 94-98 Exam: He is alert and responsive in no acute distress. Pupils equal round reactive to light and accommodation. Extraocular movements intact. Oropharynx with a pierced tongue. He has a class III Mallampati exam. Neck is supple without adenopathy or thyromegaly. No supraclavicular adenopathy is noted. Chest with symmetrical breath sounds without focal wheeze, rhonchi, or rales. Cardiac exam reveals a regular rhythm without murmur or gallop. Abdomen soft nontender without palpable hepatosplenomegaly or mass. Extremities are without clubbing, cyanosis, or edema. Neurologically, he is grossly intact. He moves all extremities with good strength. Medical,Surgical,& Family Hx - Medical History Cardio: History of: Hypertension, [place] (2005) HEENT: History of: Eye Problem Endocrine: History of: Diabetes Mellitus (IDDM) (States he had eye surgery.) Other: History of: Miscellaneous Medical Problems (Head trauma as a child) - Surgical History Cardiac Surgeries: Sugical HX of: Cardiac Catheterization (2005) HEENT Surgeries: Surgical HX of: Eye Surgery, Tonsilectomy & Adenoidectomy - Family History Family History: Reports;: Family Diabetes (Mother, sister) - Social History Smoking Status: Current every day smoker (Smokes a pack a day, has smoked since age of 10) Frequency of Alcohol Use: Occasionally Type of Drug Use: None Results - Labs CBC & BMP: 01/13/17 06:11 01/13/17 06:11 Lab Results: I have reviewed the past 24 hour labs
--- NOTE | 2017-01-13 15:32 | ECHO Report ---
Mayo Herrmann Exam Date: 01/13/2017 08:20 Referring Physician: Technologist: felix Duke ARDMS, RVT Age: 46 Ht (in): 73 Wt (lb): 253 Gender: M Exam Location: [facility] Echo Indications: Syncope and collapse, fever, CAD, Palpitations, Tachycardia, Hx: [place] BP: 131 / 72 HR: 92 Rhythm: Sinus Technical Quality: Good IMPRESSIONS Mild left ventricular hypertrophy. Left ventricular ejection fraction is estimated at 65%. Mild apical LAE. Trace mitral valve regurgitation. Trace to mild tricuspid valve regurgitation. Tricuspid regurgitation velocities suggest a PAP of 40 mmHg. MEASUREMENTS (Male / Female) Normal Values 2D ECHO LV Diastolic Diameter PLAX 4.5 cm 4.2 - 5.9 / 3.9 - 5.3 cm LV Systolic Diameter PLAX 2.4 cm LV Fractional Shortening PLAX 45.7 % IVS Diastolic Thickness 1.2 cm 0.6 - 1.0 / 0.6 - 0.9 cm LVPW Diastolic Thickness 1.4 cm 0.6 - 1.0 / 0.6 - 0.9 cm RV Internal Dim ED PLAX 3.6 cm Aortic Root Diameter 3.0 cm LA Systolic Diameter LX 4.1 cm 3.0 - 4.0 / 2.7 - 3.8 cm DOPPLER TR Peak Velocity 274.0 cm/s TR Peak Gradient 30.0 mmHg FINDINGS Left Ventricle Normal left ventricular cavity size. Mild left ventricular hypertrophy. Left ventricular ejection fraction is estimated at 65%. Right Ventricle The right ventricle is normal in size and function. Right Atrium The right atrium is normal in size. Left Atrium Mild apical LAE Mitral Valve Morphologically normal mitral valve. Trace mitral valve regurgitation. Aortic Valve Morphologically normal aortic valve without significant sclerosis or stenosis. There is no aortic regurgitation. Tricuspid Valve Morphologically normal tricuspid valve. Trace to mild tricuspid valve regurgitation. Tricuspid regurgitation velocities suggest a PAP of 40 mmHg. Pulmonic Valve Morphologically normal pulmonic valve without significant stenosis. There is no pulmonic regurgitation. Pericardium Normal pericardium without effusion. Aorta Normal ascending aorta dimension. Emre Johns MD (Electronically Signed) Final Date: 13 January 2017 15:31
--- NOTE | 2017-01-13 18:27 | Cardiology Progress Note ---
I, Joie Escamilla RN, am scribing for, and in the presence of, Emre Johns MD 18:26. Assessment and Plan (1) Syncope Status: Acute Assessment and plan: Initial assessment and plan January 12, 2017: His story sounds unusual. I am not so sure that he had a true syncopal episode and CPR for 45 minutes-?. These enzymes negative, I doubt he is having ACS He has unknown treated/uncontrolled diabetes He is overweight I suspect he has untreated obstructive sleep apnea, likely contributing to his EDS Heart pounding could be tachycardia for many causes. So far it is only been sinus tachycardia The metoprolol is not controlling the tachycardia DC metoprolol and use bisoprolol I discussed with the patient the benefits of stopping tobacco/nicotine, the problems with continuing to use it, and options of treatment. The patient is considering this option. Consult Dr. Benitez regarding evaluations treatment of sleep apnea Aspirin daily Check fasting profile and treat per guidelines Prognosis is very guarded with so many untreated medical illnesses Assessment and plan January 13, 2017: Heart rate is better. Borderline to slow We will reduce bisoprolol to 2.5 mg daily, hold if pulse less than 55 the dose Echo shows good LV function, some LVH. See report. No cardiac structural cause for syncope is noted. Dr. Benitez agrees with suspicion of sleep apnea. He is to get an outpatient sleep study and treatment Okay with me for discharge when you say so. Since he does not have overt heart disease I will follow-up with him as needed basis. He may follow-up with his PCP as is scheduled. If he does not have one, he can establish with 1 of his choice. Thank you for allowing me to participate in this patient's care Current Visit: Yes (2) Tachycardia Status: Acute Current Visit: Yes (3) Palpitations Status: Acute Current Visit: Yes (4) History of MS (myocardial infarction) Status: Chronic Current Visit: No (5) Uncontrolled diabetes mellitus type 2 without complications Status: Chronic Current Visit: Yes Qualifiers: Diabetes mellitus custodial insulin use: with custodial use Qualified Code( s): E11.65 - Type 2 diabetes mellitus with hyperglycemia; Z79.4 - superintendent terminal ( current) use of insulin (6) CAD (coronary artery disease) Status: Chronic Current Visit: Yes Qualifiers: Coronary Disease-Associated Artery/Lesion type: [place] artery [place] vs. transplanted heart: [place] heart Associated angina: without angina Qualified Code(s): I25.10 - Atherosclerotic heart disease of [place] coronary artery without angina pectoris (7) Suspected sleep apnea Status: Acute Current Visit: Yes Cardiology - PN: Subj Interval history: Staffing Program Manager: New to Dr. Johns PCP: None, states he just moved to this area recently Summary: Mr. Herrmann is a 46 year old male who reports he last saw a biomedical engineer about 4 years ago. He saw a biomedical engineer in [place], he does not remember the name. He reports he had an MS about 20 years ago. He had a heart cath at that time and they "cleaned out the blockage". He states he had a stress test done about 8 years ago and was told it was okay. He also has diabetes. 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 Surgeries include 2 eye surgeries, surgery for diabetic cyst, and tonsillectomy. Family history is positive for mother and sister with diabetes. He is a current smoker, stating he smokes 1 pack a day and has smoked since he was 10 years old. He states he was in his normal state of health until the afternoon of January 11 he was driving home and his heart began to beat very fast and he became short of breath. This continued and while he was eating he passed out and does not remember anything until he woke up at the hospital. No family is available at this time, but he says they told him that "his breathing was not right and his chest was beating hard", he also says they performed CPR. He says when he woke up at the hospital he continued to be short of breath and his heart was still beating fast, but the symptoms had improved. For the last several days he has had lower extremity edema. He says he has this from time to time. He denies having any chest pain at any time. EKG on admission showed sinus tachycardia with heart rate of 121. His blood pressures have been stable throughout the night. D-dimer was negative. Troponin has been negative 3. CT of the head showed no acute intracranial abnormality. January 12, 2017: Mr. Herrmann is seen resting in bed in no acute distress. She denies any chest pain, shortness of breath, dizziness, palpitations, or any further feelings of syncope or near syncope. His only complaint this morning is of a headache. He does have a temp this morning at 102.4, his white count has been normal. He has been started on metoprolol tartrate 25 mg p.o. twice daily. news anchor currently shows sinus tachycardia with heart rates in the 110s. January 13, 2017: Mr. Herrmann has been up ambulating in the halls. He denies any chest pain, shortness of breath, dizziness, palpitations, or syncope or near syncope. He has been afebrile. His blood pressures have been stable. Metoprolol has been changed to bisoprolol and his heart rates have improved. Preliminary blood culture results have been negative at day 1. An echocardiogram has been ordered. Exam (Progress Note) - Constitutional Vitals: Period Temp Pulse Resp BP Sys/Hu Pulse Ox Last 24 Hr 97.5 F-99.8 F 88-110 18-28 108-131/61-72 94-98 Exam: General: Present: Appears Well, No Apparent Distress HEENT: Present: PERRL, Mucus Membranes Moist, Other (Right sided facial paralysis) Neck: Present: Supple Neck, Midline Trachea, No Bruit Cardiac: Present: Regular Rhythm, No Murmur, Tachycardia Lungs: Present: Normal Breath Sounds, No Wheeze, Rales, Rhonchi Neuro: Absent: Resting Tremor, Essential Tremor Abdomen: Present: Soft, Active Bowel Sounds, Non-Tender. Absent: Distended Skin: Absent: Rash, Suspicious Lesions Extremities: Present: Normal Upper Extr. Pulses, Normal Lower Extr. Pulses, +1 Edema Result/EKG - Labs CBC & BMP: 01/13/17 06:11 01/13/17 06:11 Lab Results: I have reviewed the past 24 hour labs Labs: Laboratory Results - last 24 hr 01/12/17 01/12/17 01/12/17 09:36 11:40 16:09 WBC RBC Hgb Hct MCV MCH MCHC RDW Plt Count MPV Neut % (Auto) Lymph % (Auto) [place] % (Auto) Eos % (Auto) Baso % (Auto) Neut # (Auto) Lymph # (Auto) [place] # (Auto) Eos # (Auto) Baso # (Auto) Immature Gran % Nucleated RBC % Immature Gran # Nucleated RBCs # Immature Plt Fraction Sodium Potassium Chloride Carbon Dioxide Anion Gap BUN Creatinine GFR Calculation BUN/Creatinine Ratio Glucose POC Glucose 271 H 390 H Calculated Osmolality Calcium Magnesium Troponin I < 0.015 Triglycerides Cholesterol LDL Cholesterol VLDL Cholesterol HDL Cholesterol Heart Disease Risk Ratio 01/12/17 01/12/17 01/13/17 16:50 20:19 06:11 WBC 8.5 RBC 4.77 Hgb 14.8 Hct 43.0 MCV 90.1 MCH 31 MCHC 34.4 RDW 11.9 Plt Count 180 MPV 9.7 Neut % (Auto) 61.0 Lymph % (Auto) 27.9 [place] % (Auto) 9.2 Eos % (Auto) 0.7 Baso % (Auto) 0.6 Neut # (Auto) 5.2 Lymph # (Auto) 2.4 [place] # (Auto) 0.8 Eos # (Auto) 0.1 Baso # (Auto) 0.1 Immature Gran % 0.6 Nucleated RBC % 0.0 Immature Gran # 0.05 Nucleated RBCs # 0.00 Immature Plt Fraction 0.0 Sodium Potassium Chloride Carbon Dioxide Anion Gap BUN Creatinine GFR Calculation BUN/Creatinine Ratio Glucose POC Glucose 284 H Calculated Osmolality Calcium Magnesium Troponin I < 0.015 Triglycerides Cholesterol LDL Cholesterol VLDL Cholesterol HDL Cholesterol Heart Disease Risk Ratio 01/13/17 01/13/17 06:11 07:40 WBC RBC Hgb Hct MCV MCH MCHC RDW Plt Count MPV Neut % (Auto) Lymph % (Auto) [place] % (Auto) Eos % (Auto) Baso % (Auto) Neut # (Auto) Lymph # (Auto) [place] # (Auto) Eos # (Auto) Baso # (Auto) Immature Gran % Nucleated RBC % Immature Gran # Nucleated RBCs # Immature Plt Fraction Sodium 136 Potassium 4.9 Chloride 103 Carbon Dioxide 28 Anion Gap 9.9 BUN 11 Creatinine 0.80 GFR Calculation 145 BUN/Creatinine Ratio 13.00 Glucose 273 H POC Glucose 270 H Calculated Osmolality 280.0 Calcium 8.2 L Magnesium 1.8 Troponin I Triglycerides 188 H Cholesterol 186 LDL Cholesterol 128.0 VLDL Cholesterol 37.6 HDL Cholesterol 28 L Heart Disease Risk Ratio 6.64 - Diagnostic Findings Procedure: Chest x-ray: report reviewed by me I, Emre Johns MD, personally performed the services described in this documentation, ascribed by Joie Escamilla RN in my presence, and it is both accurate and complete .
[2017-01-13] MEDS: ACETAMINOPHEN 325 MG TABLET PO PRN (21:15)
[2017-01-14 06:42] LABS: Calcium 8.1 MG/DL (8.5-10.1); Osmolality,Calculated 277.1 MOS/KG (273-304)
--- NOTE | 2017-01-14 08:39 | EKG Report ---
Stationary ECG Study [facility] Test Date: 01/14/2017 8:40:12 AM Pat Name: BHARTI JAMES Department: Room: 242 Gender: M Senior Manufacturing Technician: CECILIA : 1970 Requested by: Melita Johns Order Number: [id number] Reading MD: MELITA JOHNS Intervals [place] Rate: 90 P: 67 W[place]: 142 QRS: 71 QRSD: 93 T: 39 QT: 333 QTc: 381 Interpretive Statements SINUS RHYTHM Electronically Signed On 01-14-17 12:20:41 CDT by MELITA JOHNS [email or web address]
[2017-01-14] MEDS ORDERED: BISOPROLOL 5 MG TABLET PO SCH (09:00)
[2017-01-14] MEDS: INSULIN LISPRO 100 UNIT/ML SUBCUT SCH ×2 (09:39→12:08)
[2017-01-14] MEDS: INSULIN NPH 100 UNIT/ML SUBCUT SCH (09:40)
[2017-01-14] MEDS: ASPIRIN CHEW 81 MG TABLET PO SCH (09:40)
[2017-01-14] MEDS: ENOXAPARIN 100 MG/ML SYRINGE SUBCUT SCH (09:43)
[2017-01-14] MEDS: PANTOPRAZOLE 40 MG TABLET PO SCH (09:43)
[2017-01-14 09:59] VITALS: BP 108/70
--- NOTE | 2017-01-14 10:57 | Hospitalist Progress Note ---
Assessment and Plan (1) CAD (coronary artery disease) Status: Chronic Assessment and plan: He has a previous history of a myocardial infarction and of a possible coronary intervention. He has not been experiencing chest pain. There is no evidence of a myocardial infarction. Current Visit: Yes Qualifiers: Coronary Disease-Associated Artery/Lesion type: [place] artery [place] vs. transplanted heart: pala heart Associated angina: without angina Qualified Code(s): I25.10 - Atherosclerotic heart disease of [place] coronary artery without angina pectoris (2) Fever Status: Acute Assessment and plan: On admission he had a temperature of 102.4. Chest x-ray and urinalysis were unremarkable. He was begun on intravenous levofloxacin. Blood cultures are negative. I will discontinue the antibiotics. Current Visit: Yes Qualifiers: Fever type: unspecified Qualified Code(s): R50.9 - Fever, unspecified (3) Syncope Status: Acute Assessment and plan: Telemetry monitoring has demonstrated sinus rhythm. CT scan of the head demonstrated no acute abnormalities. He is being followed by cardiology. Current Visit: Yes (4) Uncontrolled diabetes mellitus type 2 without complications Status: Chronic Assessment and plan: His blood glucose this morning was 273. I will increase his and NPH insulin to 25 units subcutaneous twice daily. Current Visit: Yes Qualifiers: Diabetes mellitus assisted insulin use: with assisted use Qualified Code( s): E11.65 - Type 2 diabetes mellitus with hyperglycemia; Z79.4 - penitentiary ( current) use of insulin Hospitalist: Subjective Interval history: Mr. Herrmann is a 46 year old male who reports he last saw a mine manager about 4 years ago. He saw a mine manager in [place], he does not remember the name. He reports he had an SD about 20 years ago. He had a heart cath at that time and they "cleaned out the blockage". He states he had a stress test done about 8 years ago and was told it was okay. He also has diabetes. 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 Surgeries include 2 eye surgeries, surgery for diabetic cyst, and tonsillectomy. Family history is positive for mother and sister with diabetes. He is a current smoker, stating he smokes 1 pack a day and has smoked since he was 10 years old. He states he was in his normal state of health until yesterday afternoon he was driving home and his heart began to beat very fast and he became short of breath. This continued and while he was eating he passed out and does not remember anything until he woke up at the hospital. No family is available at this time, but he says they told him that "his breathing was not right and his chest was beating hard", he also says they performed CPR. He says when he woke up at the hospital he continued to be short of breath and his heart was still beating fast, but the symptoms had improved. For the last several days he has had lower extremity edema. He says he has this from time to time. He denies having any chest pain at any time. EKG on admission showed sinus tachycardia with heart rate of 121. His blood pressures have been stable throughout the night. D-dimer was negative. Troponin has been negative 3. CT of the head showed no acute intracranial abnormality. Patient was seen in the hospital in consultation by cardiology and sleep medicine. Telemetry monitoring demonstrated no significant arrhythmias other than sinus tachycardia.An echocardiogram demonstrated normal left ventricular systolic function and no abnormalities. He experienced no recurrent such events during his hospitalization. Sleep medicine recommended that he undergo a sleep study as an outpatient. At the time of his discharge the patient was comfortable and eager to go home. Exam - Constitutional Vitals: Period Temp Pulse Resp BP Sys/Hu Pulse Ox Last 24 Hr 97 F-100 F 55-117 16-24 83-126/43-72 91-96 Results - Labs CBC & BMP: 01/13/17 06:11 01/14/17 05:56
--- NOTE | 2017-01-14 11:01 | Discharge Summary ---
Hospital Course - Hospital Course Hospital Course: Mr. Herrmann is a 46 year old male who reports he last saw a control systems specialist about 4 years ago. He saw a control systems specialist in [place], he does not remember the name. He reports he had an HI about 20 years ago. He had a heart cath at that time and they "cleaned out the blockage". He states he had a stress test done about 8 years ago and was told it was okay. He also has diabetes. 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 Surgeries include 2 eye surgeries, surgery for diabetic cyst, and tonsillectomy. Family history is positive for mother and sister with diabetes. He is a current smoker, stating he smokes 1 pack a day and has smoked since he was 10 years old. He states he was in his normal state of health until yesterday afternoon he was driving home and his heart began to beat very fast and he became short of breath. This continued and while he was eating he passed out and does not remember anything until he woke up at the hospital. No family is available at this time, but he says they told him that "his breathing was not right and his chest was beating hard", he also says they performed CPR. He says when he woke up at the hospital he continued to be short of breath and his heart was still beating fast, but the symptoms had improved. For the last several days he has had lower extremity edema. He says he has this from time to time. He denies having any chest pain at any time. EKG on admission showed sinus tachycardia with heart rate of 121. His blood pressures have been stable throughout the night. D-dimer was negative. Troponin has been negative 3. CT of the head showed no acute intracranial abnormality. Patient was seen in the hospital in consultation by cardiology and sleep medicine. Telemetry monitoring demonstrated no significant arrhythmias other than sinus tachycardia.An echocardiogram demonstrated normal left ventricular systolic function and no abnormalities. He experienced no recurrent such events during his hospitalization. Sleep medicine recommended that he undergo a sleep study as an outpatient. At the time of his discharge the patient was comfortable and eager to go home. Diagnosis - Discharge Diagnosis (1) CAD (coronary artery disease) Status: Chronic (2) Fever Status: Acute (3) Syncope Status: Acute (4) Uncontrolled diabetes mellitus type 2 without complications Status: Chronic (5) Suspected sleep apnea Status: Acute Discharge Plan - Discharge Data Disposition: Disch To Home/Self Care Condition at Discharge: Stable Discharge Diet: advance to your usual diet Activity: resume usual activities as tolerated - Discharge Medications New Bisoprolol [Zebeta] 2.5 mg PO DAILY #30 tablet Continue Insulin Aspart [NovoLOG] 30 unit SUBCUT BEDTIME - Follow Up or Referral - Forms/Instructions Exam - Constitutional Vitals: Period Temp Pulse Resp BP Sys/Hu Pulse Ox Last 24 Hr 97 F-100 F 55-117 16-24 83-126/43-72 91-96 Discharge Results Procedures and tests throughout hospitalization: Pending Orders 01/11/17 23:21 Blood Culture Stat Labs on day of discharge: Labs from last 24 hours 01/14/17 01/14/17 01/13/17 08:35 05:56 19:57 Sodium 135 L Potassium 4.0 Chloride 100 Carbon Dioxide 30 Anion Gap 9.0 BUN 11 Creatinine 0.70 GFR Calculation 154 BUN/Creatinine Ratio 15.00 Glucose 257 H POC Glucose 282 H 212 H Calculated Osmolality 277.1 Calcium 8.1 L Procalcitonin 01/13/17 01/13/17 01/12/17 16:48 11:56 04:32 Sodium Potassium Chloride Carbon Dioxide Anion Gap BUN Creatinine GFR Calculation BUN/Creatinine Ratio Glucose POC Glucose 290 H 277 H Calculated Osmolality Calcium Procalcitonin 0.11 Preliminary micro results at discharge 01/11/17 23:21 Blood Culture - Preliminary Blood No growth at 1 day 01/11/17 23:38 Blood Culture - Preliminary Blood No growth at 1 day DS: Provider Date of admission: 01/12/17 00:49 Primary care physician: . No PCP Attending physician on admission: Collin Jacobo MD Consults: 01/12/17 00:38 Consult to Physician [CONS] Routine Comment: chest pain syncope Consulting Provider: Nicole Macias Consult to Specialist Group: Pulmonology When should Consulting Provider be notified: Now Person Notified: KALYN Date Notified: 01/12/17 Time Notified: 07:59 01/12/17 15:21 Consult to [facility], Educator [CONS] Routine Reason for Aircraft Engine Dismantler: Diabetes Education 01/12/17 15:39 Consult to Physician [CONS] Routine Comment: Consulting Provider: 01/12/17 20:00 Consult to Physician [CONS] Routine Comment: Consulting Provider: Gabby Benitez Consulting Provider Notified: No When should Consulting Provider be notified: In am Consult Notification Comment: Patient who is overweight, has a small oropharynx, diabetes, palpitations, excessive daytime somnolence-probably has obstructive sleep apnea. Please evaluate and treat as you deem best. Thanks. Discharging clinician: Chuck Spangler
--- NOTE | 2017-01-14 13:20 | Cardiology Progress Note ---
Assessment and Plan (1) Syncope Status: Acute Assessment and plan: Initial assessment and plan January 12, 2017: His story sounds unusual. I am not so sure that he had a true syncopal episode and CPR for 45 minutes-?. These enzymes negative, I doubt he is having ACS He has unknown treated/uncontrolled diabetes He is overweight I suspect he has untreated obstructive sleep apnea, likely contributing to his EDS Heart pounding could be tachycardia for many causes. So far it is only been sinus tachycardia The metoprolol is not controlling the tachycardia DC metoprolol and use bisoprolol I discussed with the patient the benefits of stopping tobacco/nicotine, the problems with continuing to use it, and options of treatment. The patient is considering this option. Consult Dr. Benitez regarding evaluations treatment of sleep apnea Aspirin daily Check fasting profile and treat per guidelines Prognosis is very guarded with so many untreated medical illnesses Assessment and plan January 13, 2017: Heart rate is better. Borderline to slow We will reduce bisoprolol to 2.5 mg daily, hold if pulse less than 55 the dose Echo shows good LV function, some LVH. See report. No cardiac structural cause for syncope is noted. Dr. Benitez agrees with suspicion of sleep apnea. He is to get an outpatient sleep study and treatment Okay with me for discharge when you say so. Since he does not have overt heart disease I will follow-up with him as needed basis. He may follow-up with his PCP as is scheduled. If he does not have one, he can establish with 1 of his choice. Thank you for allowing me to participate in this patient's care 01/14/17 Assessment/plan/recommendation: I reviewed the echo with the patient. He has good pumping heart. No major valvular heart disease His LDL cholesterol slightly high with an HDL slightly low. I would recommend a low-dose of statin such as generic Crestor 5 mg one half daily I recommend him staying on aspirin 81 mg daily Okay with me for discharge when you say so Recommend staying on the bisoprolol as it is controlling his heart rate he feels much better with heart rate less than 100. He does not need to have follow-up with me. I encouraged him to follow with his PCP. If he does not have, what I have encouraged him to get an appointment a [facility] for evaluation and treatment of his multiple medical problems, including his diabetes, hypercholesterolemia, etc. Thank you for allowing me to participate in this patient's care (2) Tachycardia Status: Acute (3) Palpitations Status: Acute (4) History of RI (myocardial infarction) Status: Chronic (5) Uncontrolled diabetes mellitus type 2 without complications Status: Chronic Qualifiers: Diabetes mellitus assisted insulin use: with assisted use Qualified Code( s): E11.65 - Type 2 diabetes mellitus with hyperglycemia; Z79.4 - correction ( current) use of insulin (6) CAD (coronary artery disease) Status: Chronic Qualifiers: Coronary Disease-Associated Artery/Lesion type: torres martinez artery [place] vs. transplanted heart: torres martinez heart Associated angina: without angina Qualified Code(s): I25.10 - Atherosclerotic heart disease of torres martinez coronary artery without angina pectoris (7) Suspected sleep apnea Status: Acute Cardiology - PN: Subj Interval history: No chest pain or shortness of breath. He feels better. No syncopal episodes. Exam (Progress Note) - Constitutional Vitals: Period Temp Pulse Resp BP Sys/Hu Pulse Ox Last 24 Hr 97 F-100 F 55-117 16-24 83-126/43-72 91-96 Exam: General: Present: Appears Well, No Apparent Distress HEENT: Present: PERRL, Mucus Membranes Moist, Other (Right sided facial paralysis) Neck: Present: Supple Neck, Midline Trachea, No Bruit Cardiac: Present: Regular Rhythm, No Murmur, Tachycardia Lungs: Present: Normal Breath Sounds, No Wheeze, Rales, Rhonchi Neuro: Absent: Resting Tremor, Essential Tremor Abdomen: Present: Soft, Active Bowel Sounds, Non-Tender. Absent: Distended Skin: Absent: Rash, Suspicious Lesions Extremities: Present: Normal Upper Extr. Pulses, Normal Lower Extr. Pulses, +1 Edema Result/EKG - Labs CBC & BMP: 01/13/17 06:11 01/14/17 05:56 Labs: Laboratory Results - last 24 hr 01/12/17 01/13/17 01/13/17 04:32 16:48 19:57 Sodium Potassium Chloride Carbon Dioxide Anion Gap BUN Creatinine GFR Calculation BUN/Creatinine Ratio Glucose POC Glucose 290 H 212 H Calculated Osmolality Calcium Procalcitonin 0.11 01/14/17 01/14/17 01/14/17 05:56 08:35 11:29 Sodium 135 L Potassium 4.0 Chloride 100 Carbon Dioxide 30 Anion Gap 9.0 BUN 11 Creatinine 0.70 GFR Calculation 154 BUN/Creatinine Ratio 15.00 Glucose 257 H POC Glucose 282 H 248 H Calculated Osmolality 277.1 Calcium 8.1 L Procalcitonin - EKG EKG results: interpreted by me Specialty Discharge - Follow Up or Referrals Follow up with: Emre Johns MD [Physician] - (No follow-up appointment is needed with me. I have encouraged the patient to follow-up with his PCP or [facility] if he does not have a PCP.)
== END 2017-01-14 12:04 | disposition home or self-care (01) ==
LOC: EDBD → EDUNIT# → N.ED 19:55 → N.EDINP 19:55 → SUATTDRO 01-12 00:49 → N.2E 01-12 01:08
PROVIDERS: ADMIT Family Medicine

== ENCOUNTER 2020-12-08 12:02 | Observation (INO) ==
[2020-12-08] MEDS ORDERED: ASPIRIN 325 MG TABLET PO STA (14:03)
[2020-12-08] MEDS ORDERED: NITROGLYCERIN 2% OINT 1 INCH/GM PACK TOP STA (14:03)
[2020-12-08 14:57] LABS: Basophils % 0.5 % (0.0-0.8); Eosinophils # 0.1 10*3/uL (0.0-0.87); Eosinophils % 1.7 % (0.00-10.9); Hematocrit 44.5 VOL% (42.0-52.0); Hemoglobin 15.3 GM/DL (14.0-18.0); Immature Granulocytes % 0.3 %; Immature Granulocytes Absolute 0.02 #; Lymphocytes # 3.1 10*3/uL (1.4-4.0); Lymphocytes % 39.9 % (21.2-54.2); Mean Corpuscular HGB Conc 34.4 GM/DL (32-36); Mean Corpuscular Volume 92.3 FL (87-102); Mean Platelet Volume 10.7 FL (9.6-12.0); Monocytes % 6.2 % (1.7-12.7); Neutrophils % 51.4 % (38.7-73.9); Platelet Count 215 T/CUMM (130-400); Red Blood Count 4.82 MC/CUMM (3.8-5.5); Red Cell Distribution Width 11.5 % (9.3-17.3); White Blood Count 7.7 T/CUMM (4-12)
[2020-12-08 14:59] LABS: PT Patient Result 10.8 SECS (10.5-12.0)
[2020-12-08 15:19] LABS: Albumin 3.2 G/DL (3.4-5.0); Bilirubin,Total 0.6 MG/DL (0.20-1.00); Calcium 8.4 MG/DL (8.5-10.1); Total Protein 6.5 G/DL (6.4-8.2)
[2020-12-08 15:32] LABS: Total Cells Counted 100
[2020-12-08 15:33] LABS: Atypical Lymphocytes Few; Lymphocytes 40 % (20-55); Platelet Estimate Normal; Polychromasia Slight; Segmented Neutrophils 52 % (50-85)
[2020-12-08] MEDS ORDERED: GLUCAGON 1 MG VIAL IM PRN (16:32)
[2020-12-08] MEDS ORDERED: DEXTROSE 50% 25 GM/50 ML VIAL IV PRN (16:32)
[2020-12-08] MEDS ORDERED: DOCUSATE SODIUM 100 MG CAPSULE PO PRN (16:58)
[2020-12-08] MEDS ORDERED: CALCIUM CARBONATE CHEW 500 MG TABLET PO PRN (16:58)
[2020-12-08] MEDS ORDERED: ONDANSETRON 4 MG/2 ML VIAL IV PRN (16:58)
[2020-12-08] MEDS ORDERED: ENOXAPARIN 40 MG/0.4 ML SYRINGE SUBCUT SCH (17:00)
[2020-12-08] MEDS: INSULIN LISPRO 100 UNIT/ML SUBCUT SCH (21:30)
[2020-12-09 06:59] LABS: Calcium 8.2 MG/DL (8.5-10.1); Osmolality,Calculated 282.1 MOS/KG (273-304); Potassium 4.7 MMOL/L (3.5-5.1)
[2020-12-09] MEDS: INSULIN LISPRO 100 UNIT/ML SUBCUT SCH (08:04)
[2020-12-09 08:17] VITALS: BP 122/71
[2020-12-09] MEDS ORDERED: PANTOPRAZOLE 40 MG TABLET PO SCH (09:00)
== END 2020-12-09 10:08 | disposition home or self-care (01) ==
LOC: N.EDINP 12:02 → N.ED 12:02 → N.TELEN 18:05
PROVIDERS: ADMIT Internal Medicine; ATTEND Internal Medicine